=== PATIENT | male | born 1970 | race Caucasian/White ===

== ENCOUNTER 2017-02-06 13:46 | Emergency (ER) | payer OTHER ==
[~2017-02-06] VITALS: Ht 182.9 cm; Wt 89.0 kg
[~2017-02-06 13:46] MED LIST: CIPRO500 MG PO; FLAGYL500 MG PO; FLEXERIL10 MG PO; FLEXERIL5 MG PO; HYDROCODON-ACE1 EAC7 PO; LORTAB 5-325 M1 EACH PO; MEDROL DOSEPAK4 MG PO; NAPROSYN500 MG PO; NAPROXEN500 MG PO; OMEPRAZOLE40 M1 PO; PERCOCET 5/31 TABLET PO; PREDNISONE20 MG PO; VICODIN 5-3001 EACH PO
[2017-02-06] MEDS ORDERED: PERCOCET 5/31 TABLET PO (16:30)
[2017-02-06] MEDS ORDERED: SILVADENE20 GM TP (16:31)
[2017-02-06 16:46] VITALS: BP 118/91
== END 2017-02-06 16:46 | disposition home or self-care (01) ==
LOC: EME 13:46
DX: T24.231A Burn of second degree of right lower leg, initial encounter (principal); X03.8XXA Other exposure to controlled fire, not in building or structure, initial encounter; F17.200 Nicotine dependence, unspecified, uncomplicated
CPT/HCPCS: 99281; 99284

== ENCOUNTER 2017-02-09 11:10 | Emergency (ER) | payer OTHER ==
[~2017-02-09] VITALS: Ht 182.9 cm; Wt 88.9 kg
[~2017-02-09 11:10] MED LIST changes: +SILVADENE20 GM TP
[2017-02-09] MEDS ORDERED: KEFLEX500 MG PO (12:06)
[2017-02-09] MEDS ORDERED: PERCOCET 5/31 TABLET PO (12:06)
[2017-02-09 12:40] VITALS: BP 121/68
== END 2017-02-09 12:41 | disposition home or self-care (01) ==
LOC: EME 11:10
DX: T24.201A Burn of second degree of unspecified site of right lower limb, except ankle and foot, initial encounter (principal); X03.0XXA Exposure to flames in controlled fire, not in building or structure, initial encounter; F17.200 Nicotine dependence, unspecified, uncomplicated
CPT/HCPCS: 99281; 99284

== ENCOUNTER 2018-02-15 11:29 | Emergency (ER) | payer OTHER ==
[~2018-02-15] VITALS: Ht 180.3 cm; Wt 88.0 kg
[~2018-02-15 11:29] MED LIST changes: +KEFLEX500 MG PO
[2018-02-15 13:45] LABS: SOURCE URINE
[2018-02-15 13:49] LABS: APPEARANCE CLEAR ((CLEAR)); BILIRUBIN NEGATIVE; BLOOD NEGATIVE; COLOR YELLOW ((YELLOW)); GLUCOSE (STRIP) NEGATIVE; KETONES NEGATIVE; LEUKOCYTES TRACE; NITRITE NEGATIVE; PROTEIN (STRIP) NEGATIVE; SPECIFIC GRAVITY 1.025 (1.000-1.030); UROBILINOGEN 0.2 MG/DL (0.2-1.0)
[2018-02-15 13:51] LABS: BACTERIA NONE SEEN /HPF; EPITHELIAL CELLS RARE /HPF; MUCUS TRACE /LPF; RED BLOOD CELLS 0-5 /HPF (0-5); UCUL ADDED? NO; WHITE BLOOD CELLS 0-5 /HPF (0-5)
[2018-02-15 15:01] VITALS: BP 140/88
[2018-02-16 12:27] LABS: TREPONEMA ANTIBODY POSITIVE (NEGATIVE)
[2018-02-17 13:22] LABS: CHLAMYDIA TRACHOMATIS NEGATIVE; NEISSERIA GONORRHOEAE NEGATIVE
[2018-02-17 15:58] LABS: RPR SCREEN Reactive (Nonreactive); RPR TITER Reactive 1:16 (())
[2018-02-17 17:25] LABS: TREPONEMA PALLIDUM PART AGGL Reactive (Nonreactive)
== END 2018-02-15 15:02 | disposition home or self-care (01) ==
LOC: EME 11:29
PROVIDERS: Physician Assistant Medical
DX: N48.5 Ulcer of penis (principal)
CPT/HCPCS: 81003; 86592 90; 86593 90; 86780; 86780 90; 87491; 87591; 99281; 99284; J0561